=== PATIENT | male | born 1985 | race Caucasian/White ===

== ENCOUNTER 2019-08-25 08:53 | Emergency (ER) | payer SELFPAY ==
[2019-08-25 09:08] VITALS: BP 119/66; PULSE 84; RESP 16; TEMP 36.6; O2SAT 99
--- NOTE | 2019-08-25 09:16 | ED.URI ---
HPI - URI/Sore Throat General Chief Complaint: Upper Respiratory Infection Stated Complaint: head cold Time Seen by Provider: 08/25/19 09:17 Source: patient and RN notes reviewed History of Present Illness HPI Narrative: Patient is a 33-year-old male that presents the urgent care with complaints of a head cold, sore throat, nasal congestion, swollen glands. Patient states that started 1 week ago and he has been using DayQuil and NyQuil. Patient states that his son is also been sick and was recently put on medication. Denies any fever, nausea, vomiting. No other acute complaints. No acute distress noted. Patient read the plan of care. Related Data Allergies Allergy/AdvReac Type Severity Reaction Status Date / Time No Known Allergies Allergy Verified 08/25/19 09:16 Review of Systems Review of Systems: Narrative: CONSTITUTIONAL: Denies fever, chills, or sweats. EYES: Denies visual changes, redness, or discharge. ENT: Reports of nasal congestion, mild sore throat, left otalgia CARDIOVASCULAR: Denies chest pain, palpitations, or edema. RESPIRATORY: Denies cough or dyspnea. GASTROINTESTINAL: Denies abdominal pain, nausea, vomiting, or diarrhea. GENITOURINARY: Denies dysuria or hematuria. SKIN: Denies rash or itching. MUSCULOSKELETAL: Denies back pain, joint pain, or myalgia. NEUROLOGIC: Denies headache, numbness, or weakness. All other systems reviewed are negative, except as documented in HPI. PMFSH Comments At the time of my signature, I reviewed and agree with the nursing past medical, surgical, social, and family history. There is no relevant family history pertinent to the patient complaint. Exam Narrative: Exam Narrative: GENERAL: This is a well-nourished, well-developed patient, in no apparent distress. HEAD: normocephalic, atraumatic. EYES: PERRL. Sclera clear/white. Vision is grossly intact. EARS: External ears normal, auditory canals clear and without drainage, mild fluid noted behind bilateral TMs, TMs normal without perforation. Hearing grossly intact. NOSE: External nose normal with no obvious nasal discharge, nares without redness, clear rhinorrhea. THROAT: Mucous membranes moist, moderate erythema noted to posterior oropharynx with mild postnasal drainage NECK: Neck supple, non-tender bilateral mild submandibular lymphadenopathy CARDIOVASCULAR: Regular rate and rhythm without murmurs, gallops, or rubs. RESPIRATORY: Clear to auscultation. Breath sounds equal bilaterally. No wheezes, rales, or rhonchi. SKIN: warm, intact with no suspicious lesions or rash, good texture and turgor. NEURO: awake, alert, and oriented to person, place and time. There were no obvious focal neurologic abnormalities. EXTREMITIES: No clubbing, cyanosis, or edema. Course Vital Signs Vital signs: Vital Signs Temperature 97.9 F 08/25/19 09:08 Pulse Rate 84 08/25/19 09:08 Respiratory Rate 16 08/25/19 09:08 Blood Pressure 119/66 08/25/19 09:08 Pulse Oximetry 99 08/25/19 09:08 Temperature 97.9 F 08/25/19 09:08 Pulse Rate 84 08/25/19 09:08 Respiratory Rate 16 08/25/19 09:08 Blood Pressure 119/66 08/25/19 09:08 Pulse Oximetry 99 08/25/19 09:08 Reviewed MDM - URI/Sore Throat MDM Narrative Medical decision making narrative: Reviewed lab results with the patient. He is aware that strep swab was negative. Educated him on culture and will call within 72 hours if culture is positive and antibiotics are necessary. Advised the patient to use [id number] Claritin or Zyrtec in conjunction with Flonase nasal spray for symptom relief. Increase fluids and rest. Use humidifier at night. Follow-up with PCP within 2 to 5 days if worsening symptoms or failure to improve. Differential Diagnosis Differential diagnosis: Likely upper respiratory infection, otitis media, sinusitis, bronchitis, influenza and pharyngitis Lab Data Attestation: I reviewed the patient's lab results. Labs: Strep Screen P
== END 2019-08-25 09:37 | disposition home or self-care (01) ==
PROVIDERS: Emergency Provider Nurse Practitioner Family
DX: J06.9 Acute upper respiratory infection, unspecified (principal)
CPT/HCPCS: 87081; 87880; 99203; G0463

== ENCOUNTER 2019-11-16 17:18 | Emergency (ER) | payer SELFPAY ==
[2019-11-16 17:24] VITALS: BP 121/81; PULSE 89; RESP 20; TEMP 36.8; O2SAT 99
--- NOTE | 2019-11-16 17:42 | ED.SKABFB ---
HPI - Skin/Abscess/Foreign Bdy General Chief complaint: Skin/Abscess/Foreign Body Stated complaint: sore on rear of leg Source: patient and RN notes reviewed Mode of arrival: ambulatory Limitations: no limitations History of Present Illness HPI narrative: Patient presents today complaining of an abscess to the left posterior upper leg. Reports the small bump has been present for about a month and had not been painful. It had turned painful over the past 2 to 3 days and is now very tender to touch. Patient states he has had at least 5 abscesses lanced in the past. Denies history of MRSA. MD complaint: abscess/boil Related Data Allergies Allergy/AdvReac Type Severity Reaction Status Date / Time No Known Allergies Allergy Verified 11/16/19 17:41 Review of Systems Review of Systems: Narrative: CONSTITUTIONAL: Denies body aches, fever, chills, or sweats. EYES: Denies visual changes, redness, or discharge. ENT: Denies rhinorrhea, congestion, sore throat, or otalgia. CARDIOVASCULAR: Denies chest pain, palpitations, or edema. RESPIRATORY: Denies cough or dyspnea. GASTROINTESTINAL: Denies abdominal pain, nausea, vomiting, or diarrhea. GENITOURINARY: Denies dysuria or hematuria. SKIN: Denies rash, itching. +Abscess to left leg MUSCULOSKELETAL: Denies back pain, joint pain, or myalgia. NEUROLOGIC: Denies headache, numbness, tingling, or weakness. PSYCH: Denies depression or anxiety. PMFSH Comments At time of signature, I have reviewed and agree with nursing past medical, surgical, social and family history unless otherwise noted. Please see nursing chart for further information. There is no relevant family history pertinent to the presenting complaint Exam Narrative: Exam Narrative: GENERAL: Well-appearing, well-nourished, and in no acute distress. HEAD: Normocephalic, atraumatic. EYES: EOMI. No redness or drainage. Conjunctivae normal. ENT: Mucous membranes pink and moist. NECK: Normal AROM. CHEST: No respiratory distress. EXTREMITIES: Normal range of motion. No edema. SKIN: Warm, dry, no rash. Capillary refill normal. Normal skin turgor. 4 x 6 area of erythema just under the left buttock cheek. 1 cm round area of fluctuance In the center. Tender to palpation. NEURO: No focal deficits. Alert and oriented x3. Gait steady. PSYCH: Normal affect. No signs of depression or anxiety. Course Vital Signs Vital signs: Vital Signs Temperature 98.3 F 11/16/19 17:24 Pulse Rate 89 11/16/19 17:24 Respiratory Rate 20 11/16/19 17:24 Blood Pressure 121/81 11/16/19 17:24 Pulse Oximetry 99 11/16/19 17:24 Temperature 98.3 F 11/16/19 17:24 Pulse Rate 89 11/16/19 17:24 Respiratory Rate 20 11/16/19 17:24 Blood Pressure 121/81 11/16/19 17:24 Pulse Oximetry 99 11/16/19 17:24 Reviewed. Pt has been instructed to follow up with his PCP regarding his elevated blood pressure today. Procedures Abscess I/D lower extremity: Date of Incision: 11/16/19 Time of Incision: 17:43 Side (if applicable): left (Leg) Local Anesthetic: lidocaine 1% Amount of anesthesia used (mL): 4 Technique: incised with #11 blade Amount of fluid expressed (mL): 1 Irrigation: Yes Packing used?: none I&D Results: Pus and Blood Abcess I&D Additional Comments: Culture obtained. Dressed with a large Band-Aid. MDM - Skin/Abscess/Foreign Bdy Differential Diagnosis Differential diagnosis: Likely abscess of skin or subcutaneous tissue, urticaria, cellulitis, impetigo and contact dermatitis Critical Care Time Critical Care Time Critical Care Time: No Discharge Plan Discharge Clinical Impression: Abscess of skin or subcutaneous tissue Qualifiers: Site of cutaneous abscess: extremity Site of cutaneous abscess of extremity: lower extremity Laterality: left Qualified Code(s): L02.416 - Cutaneous abscess of left lower limb Cellulitis Qualifiers: Site of cellulitis:
== END 2019-11-16 18:05 | disposition home or self-care (01) ==
PROVIDERS: Emergency Provider Nurse Practitioner
DX: L02.416 Cutaneous abscess of left lower limb (principal); L03.116 Cellulitis of left lower limb
CPT/HCPCS: 10060; 87070; 87205; 99213; G0463

== ENCOUNTER 2021-06-20 10:59 | Emergency (ER) | payer SELFPAY ==
--- NOTE | 2021-06-20 11:06 | ED.URI ---
HPI - URI/Sore Throat General Chief Complaint: Upper Respiratory Infection Stated Complaint: Fever/Ear Pain Time Seen by Provider: 06/20/21 11:06 Source: patient and RN notes reviewed History of Present Illness HPI Narrative: Patient is a 35-year-old male who presents the urgent care with complaints of sore throat, ear pain, body aches, headache and fever. Patient states it started last night. Patient has not taken anything [id number] for his symptoms. Patient has not had a Covid vaccine. States that he was at a [employer] over the weekend with a bunch of people . No other acute complaints. No acute distress noted. Patient aware of the plan of care. Some parts of this dictation were generated by voice recognition software and may contain typographical and/or grammatical inaccuracies. Related Data Home Medications Medication Instructions Recorded Confirmed No Home Medications 06/20/21 06/20/21 Allergies Allergy/AdvReac Type Severity Reaction Status Date / Time No Known Allergies Allergy Verified 06/20/21 11:19 Review of Systems Review of Systems: CONSTITUTIONAL: Reports of chills, sweats, fatigue EYES: Denies visual changes, redness, or discharge. ENT: Reports nasal congestion, sore throat and otalgia CARDIOVASCULAR: Denies chest pain, palpitations, or edema. RESPIRATORY: Denies cough or dyspnea. GASTROINTESTINAL: Denies abdominal pain, nausea, vomiting, or diarrhea. GENITOURINARY: Denies dysuria or hematuria. SKIN: Denies rash or itching. MUSCULOSKELETAL: Denies back pain, joint pain. Reports of body aches NEUROLOGIC: Reports of headache All other systems reviewed are negative, except as documented in HPI. PMFSH Comments At the time of my signature, I reviewed and agree with the nursing past medical, surgical, social, and family history. There is no relevant family history pertinent to the patient complaint. Exam Narrative: GENERAL: This is a well-nourished, well-developed patient, in no apparent distress. HEAD: normocephalic, atraumatic. EYES: PERRL. Sclera clear/white. Vision is grossly intact. EARS: External ears normal, mild erythema without edema to right auditory canal, auditory canals clear and without drainage, mild fluid noted behind bilateral TMs with out otitis. TMs normal without perforation. Hearing grossly intact. NOSE: External nose normal with no obvious nasal discharge, nares without redness, no rhinorrhea. THROAT: Mucous membranes moist, moderate erythema noted posterior pharynx with moderate postnasal drainage NECK: Neck supple CARDIOVASCULAR: Regular rate and rhythm without murmurs, gallops, or rubs. RESPIRATORY: Clear to auscultation. Breath sounds equal bilaterally. No wheezes, rales, or rhonchi. SKIN: warm, intact with no suspicious lesions or rash, good texture and turgor. NEURO: awake, alert, and oriented to person, place and time. There were no obvious focal neurologic abnormalities. EXTREMITIES: No clubbing, cyanosis, or edema. Course Vital Signs Vital signs: Vital Signs Temperature 99.5 F 06/20/21 11:07 Pulse Rate 106 H 06/20/21 11:07 Respiratory Rate 18 06/20/21 11:07 Blood Pressure 118/73 06/20/21 11:07 Pulse Oximetry 98 06/20/21 11:07 Temperature 99.5 F 06/20/21 11:07 Pulse Rate 106 H 06/20/21 11:07 Respiratory Rate 18 06/20/21 11:07 Blood Pressure 118/73 06/20/21 11:07 Pulse Oximetry 98 06/20/21 11:07 Reviewed MDM - URI/Sore Throat MDM Narrative Medical decision making narrative: Advised the patient to increase his water intake and rest. Use [id number] Claritin/Benadryl/Zyrtec as needed for upper respiratory symptoms in conjunction with Tylenol/ibuprofen as needed. Considering you are not Covid vaccinated and you are symptomatic for Covid-like symptoms, it is important to remain quarantine until you obtain your Covid swab. If you are going to obtain a rapid Covid, waiting 2 days would be most beneficial for a more
[2021-06-20 11:07] VITALS: BP 118/73; PULSE 106; RESP 18; TEMP 37.5; O2SAT 98
== END 2021-06-20 11:37 | disposition home or self-care (01) ==
PROVIDERS: Emergency Provider Nurse Practitioner Family
DX: B34.9 Viral infection, unspecified (principal); Z86.14 Personal history of Methicillin resistant Staphylococcus aureus infection
CPT/HCPCS: 87081; 87804; 87880; 99213; G0463

== ENCOUNTER 2022-11-13 15:39 | Emergency (ER) | payer SELFPAY ==
[2022-11-13 15:46] VITALS: BP 106/67; PULSE 99; RESP 16; TEMP 37.3; O2SAT 100
--- NOTE | 2022-11-13 16:36 | ED.EYEPROB ---
HPI - Eye Problem General Chief complaint: Eye Problems Stated complaint: Flashburn left eye Source: patient and RN notes reviewed History of Present Illness HPI Narrative: 36 yo M presents to urgent care with complaints of left eye pain. Pt reports associated photophobia. 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 Pt states it felt like something was in his eye and his eye was scratched. Pt immediately went to the eyewash station and irrigated his eye with good relief. Pt states the next day he welded for 7 hours and the pain returned and was intensified. Pt states he believes he may have a flash burn. Pt states he is starting to get a migraine b/c he is unable to open his left eye due to pain. Unknown on last Tdap. Pt does not wear contacts. Related Data Home Medications Medication Instructions Recorded Confirmed No Home Medications 06/20/21 11/13/22 Allergies Allergy/AdvReac Type Severity Reaction Status Date / Time No Known Allergies Allergy Verified 11/13/22 16:00 Review of Systems Review of Systems: CONSTITUTIONAL: Denies fever, chills, or sweats. EYES: Left eye pain, photophobia ENT: Denies otalgia and sore throat CARDIOVASCULAR: Denies chest pain, palpitations, or edema. RESPIRATORY: Denies cough or dyspnea. GASTROINTESTINAL: Denies abdominal pain, nausea, vomiting, or diarrhea. GENITOURINARY: Denies dysuria or hematuria. SKIN: Denies rash or itching. MUSCULOSKELETAL: Denies back pain, joint pain, or myalgia. NEUROLOGIC: Denies headache, numbness, or weakness. Pertinent positives per HPI. PMFSH Comments At the time of my signature, I reviewed and agree with the nursing past medical, surgical, social, and family history. There is no relevant family history pertinent to the patient complaint. Exam Narrative: GENERAL: This is a well-nourished, well-developed patient, in no apparent distress. HEAD: normocephalic, atraumatic. EYES: PERRL. Sclera clear/white. Reynaga lamp exam demonstrates a speck of FB to center of cornea. EARS: External ears normal, auditory canals clear and without drainage, TMs normal without perforation. Hearing grossly intact. NOSE: External nose normal with no obvious nasal discharge, nares without redness, no rhinorrhea. THROAT: Mucous membranes moist, posterior pharynx clear. NECK: Neck supple, non-tender without lymphadenopathy, masses or thyromegaly. CARDIOVASCULAR: Regular rate and rhythm without murmurs, gallops, or rubs. RESPIRATORY: Clear to auscultation. Breath sounds equal bilaterally. No wheezes, rales, or rhonchi. NEURO: awake, alert, and oriented to person, place and time. There were no obvious focal neurologic abnormalities. Course Course Level of Care: Express Care Visit Vital Signs Vital signs: Vital Signs Temperature 99.1 F 11/13/22 15:46 Pulse Rate 99 11/13/22 15:46 Respiratory Rate 16 11/13/22 15:46 Blood Pressure 106/67 11/13/22 15:46 Pulse Oximetry 100 11/13/22 15:46 Oxygen Delivery Room Air 11/13/22 15:46 Temperature 99.1 F 11/13/22 15:46 Pulse Rate 99 11/13/22 15:46 Respiratory Rate 16 11/13/22 15:46 Blood Pressure 106/67 11/13/22 15:46 Pulse Oximetry 100 11/13/22 15:46 Oxygen Delivery Room Air 11/13/22 15:46 reviewed. MDM - Eye Problem MDM Narrative Medical decision making narrative: Reynaga lamp exam demonstrates FB spec to center of cornea. Pt in acute pain/distress. Discussed reasons for transfer recommendation and pt agreed. Spoke to the transfer center at [facility] who gave Dr. Burrows as the accepting ER MD. Differential Diagnosis Differential diagnosis: Likely corneal abrasion, corneal ulcer, ruptured globe and other (eye FB) Critical Care Time Critical Care Time Critical Care Time: No Discharge Plan Discharge Clinical Impression: Eye foreign body Qualifiers: Encounter type: initial encounter Lateralit
[2022-11-13] MEDS: TETANUS,DIPHTHERIA,AC PERTUSSIS ADULT (0.5 ML) BOOSTRIX IM (16:49)
== END 2022-11-13 17:09 | disposition short-term general hospital (02) ==
PROVIDERS: Emergency Provider Nurse Practitioner Family
DX: T15.02XA Foreign body in cornea, left eye, initial encounter (principal); X58.XXXA Exposure to other specified factors, initial encounter; Z23 Encounter for immunization
CPT/HCPCS: 90471; 90715; 99212; A9270; G0463